=== PATIENT | male | born 1965 | race Caucasian/White ===

== ENCOUNTER → 2024-07-14 13:28 | Outpatient (REF) | payer OTHER, SELFPAY | LOC: HWRAD 13:28 | PROVIDERS: ATTENDING PHYSICIAN Nurse Practitioner Adult Health; FAMILY PHYSICIAN Nurse Practitioner | DX: R05.1 Acute cough (principal); Z87.01 Personal history of pneumonia (recurrent) | CPT/HCPCS: 71250 ==

== ENCOUNTER → 2024-08-12 10:20 | Outpatient (REF) | payer OTHER, SELFPAY | LOC: HWRAD 10:20 | PROVIDERS: ATTENDING PHYSICIAN Nurse Practitioner Adult Health; FAMILY PHYSICIAN Nurse Practitioner | DX: J18.9 Pneumonia, unspecified organism (principal) | CPT/HCPCS: 71046 ==